=== PATIENT | male | born 1995 | race Caucasian/White ===

== ENCOUNTER 2021-07-15 12:50 | Outpatient (REF) | payer OTHER, SELFPAY ==
[2021-07-15 13:36] LABS: Hemoglobin 15.5 g/dl (14.0-18.0); Mean Corpuscular HGB Conc 34.4 g/dl (31.0-36.0); Mean Corpuscular Hemoglobin 30.6 pg (27.0-33.0); Mean Corpuscular Volume 88.9 fL (80.0-98.0); Platelet Count 267 X10*3/uL (160-400); Red Blood Count 5.06 X10*6/uL (4.60-5.80); Red Cell Distribution Width 12.5 % (11.0-16.0); White Blood Count 7.9 X10*3/uL (4.8-10.8)
[2021-07-15 13:56] LABS: Alanine Aminotransferase 42 U/L (0-40); Albumin Level 4.6 g/dL (3.5-5.0); Alkaline Phosphatase 83 U/L (39-117); Anion Gap 12 (12-20); Aspartate Amino Transferase 25 U/L (5-37); Bilirubin Total 0.6 mg/dL (0.0-1.0); Blood Urea Nitrogen 10 mg/dL (9-16); Calcium 10.1 mg/dL (8.4-10.2); Carbon Dioxide 28 mmol/L (22-29); Chloride 104 mmol/L (96-108); Cholesterol 148 mg/dL; Estimated Glomerular Filt Rate > 60; Glucose Fasting 84 mg/dL (60-99); HDL Cholesterol 57 mg/dL; LDL Cholesterol Calculated 79 mg/dl; Potassium 4.5 mmol/L (3.3-5.1); Sodium 139 mmol/L (135-145); Total Protein 7.2 g/dL (6.5-8.0); Triglycerides 61 mg/dL
[2021-07-15 14:16] LABS: TSH reflex Free T4 1.14 uIU/mL (0.32-4.0)
== END 2021-07-15 12:51 | disposition home or self-care (01) ==
LOC: HO.WFDLDS 12:50
PROVIDERS: Visit Provider Hospitalist
DX: Z00.00 Encounter for general adult medical examination without abnormal findings (principal)
CPT/HCPCS: 36415; 80053; 80061; 84443; 85027

== ENCOUNTER 2021-12-29 08:47 | Outpatient (REF) | payer OTHER, SELFPAY ==
[2021-12-29 09:24] LABS: COVID-19 Test Negative (Negative); IDNOW Serial# 16C4AD1C
== END 2021-12-29 08:48 | disposition home or self-care (01) ==
LOC: HO.LAB 08:47
PROVIDERS: Visit Provider Internal Medicine
DX: Z20.822 Contact with and (suspected) exposure to COVID-19 (principal)
CPT/HCPCS: 87635; C9803

== ENCOUNTER 2022-01-30 10:44 | Outpatient (REF) | payer OTHER, SELFPAY ==
[2022-01-30 14:27] LABS: Appearance Urine Clear; Color Urine Yellow; Glucose Urine UA Negative (Negative); Leukocyte Esterase Urine Negative (Negative); Nitrite Urine Negative (Negative); PH 6.5 (5.0-9.0); Specific Gravity - Urine <= 1.005 (1.005-1.025); Urine Blood Negative (Negative); Urine Ketones Negative (Negative); Urine Protein Negative (Neg-Trace)
[2022-01-30 16:33] LABS: CT PCR NOT DETECTED (Not Detect.); NG PCR NOT DETECTED (Not Detect.)
[2022-02-02 08:20] LABS: HBS Num1 71.81 mIU/mL (0-7.99); HBc Num1 0.06 S/CO (0.00-0.79); HBsAGNum1 0.19 S/CO (0.00-0.99); HIV AB/AG Nonreactive (Nonreactive); HIV Num 1 0.06 S/CO (0.00-0.99); Hepatitis B Core Antibody Nonreactive (Nonreactive); Hepatitis B Surface Antigen Negative (Negative); ~Hepatitis B Surface Antibody REACTIVE (Nonreactive); ~Hepatitis C Antibody Nonreactive (Nonreactive)
== END 2022-01-30 10:45 | disposition home or self-care (01) ==
LOC: HO.WFDLDS 10:44
PROVIDERS: Visit Provider Hospitalist
DX: Z11.3 Encounter for screening for infections with a predominantly sexual mode of transmission (principal); Z11.4 Encounter for screening for human immunodeficiency virus [HIV]
CPT/HCPCS: 36415; 81003; 86704; 86706; 86803; 87340; 87389; 87491; 87591

== ENCOUNTER → 2022-02-05 08:48 | Outpatient (BNVA) | payer OTHER, SELFPAY | PROVIDERS: PCP Hospitalist; Visit Provider Nurse Practitioner Family | DX: G47.19 Other hypersomnia (principal); R06.83 Snoring | CPT/HCPCS: 99202 ==

== ENCOUNTER → 2022-02-13 19:30 | Outpatient (REF) | payer OTHER, SELFPAY | LOC: HO.SL 19:30 | PROVIDERS: Visit Provider Hospitalist | DX: G47.33 Obstructive sleep apnea (adult) (pediatric) (principal) | CPT/HCPCS: 95810 ==

== ENCOUNTER → 2022-04-02 08:55 | Outpatient (BNVA) | payer OTHER, SELFPAY | PROVIDERS: PCP Hospitalist; Visit Provider Nurse Practitioner Family | DX: G47.19 Other hypersomnia (principal); G47.61 Periodic limb movement disorder | CPT/HCPCS: 99212 ==

== ENCOUNTER → 2022-07-03 11:07 | Outpatient (BNVA) | payer OTHER, SELFPAY | PROVIDERS: PCP Hospitalist; Visit Provider Nurse Practitioner Family | DX: G47.19 Other hypersomnia (principal); G47.61 Periodic limb movement disorder; Z79.899 Other long term (current) drug therapy | CPT/HCPCS: 99212 ==

== ENCOUNTER 2023-02-19 10:01 | Outpatient (AMB) | payer OTHER, SELFPAY ==
--- NOTE | 2023-02-19 10:05 | A.OFFPC_ITS ---
Vital Signs 02/19/23 10:07 Height 5 ft 10 in Weight 220 lb 2 oz BMI 31.6 BP 112/66 Blood Pressure Location Lt brachial Position Sitting Respiration 13 Pulse 59 Pulse Source Pulse Oximeter Temp 98.7 F Temp Source Oral Pulse Oximetry (%) 98 Oxygen Delivery Method Room Air Intake Visit Reasons: 6M allergies/asthma/Gabapentin, Trans of care Intake Note: Patient is here for a 6 months follow up of asthma, allergies and gabapentin as well as a transfer of care from to [place]. Patient reports he has seasonal allergies with mild symptoms of stuffy nose, itching watering eyes, nothing out of the ordinary. Patient reports he has a sleep study done for severe snoring and the results were 40 interruptions in which prescribed gabapentin for night time to help patient sleep through the night. Patient reports the gabapentin helps. Patient had sleep study done at [facility] [place]. Cable Splicer Required: No Accompanied by: Self / Same As Patient Allergies Seasonal Allergies Allergy (Mild, Verified 02/19/23 10:23) Itchy Eyes Medication List - Last Reconciled 02/19/23 by Jovan Martinez CNP albuterol sulfate 90 mcg/actuation 2 puffs inhalation Q6H PRN blood pressure test kit-large As directed cetirizine (Zyrtec) 10 mg PO DAILY PRN fluticasone propionate 50 mcg/actuation (Allergy Relief (fluticasone)) 2 sprays intranasal DAILY 1 month gabapentin 1-3 caps orally bedtime; modafinil 100 mg PO DAILY multivitamin 1 tab PO DAILY Tobacco use date assessed: 02/19/23 Dental Screening Dental Screen Date: 02/19/23 Did you have a dental visit in the last 12 months?: Yes Did you have a dental problem in the last 6 months where you did not have access to dental care?: No Was dental information given to patient?: Patient has dentist HPI HPI Comments History of Present Illness Details 27-year-old male presents for transfer o care. His former PCP was who is no longer with the practice. He was last evaluated on 07/16/2022. He had a normal physical exam. He has not had routine blood work done in over a year. He has history of snoring, excessive daytime sleepiness, and seasonal allergies. He is on albuterol inhaler, fluticasone inhaler, cetirizine, gabapentin, modafinil, and multivitamins. He admits to taking his medications as prescribed. He reports significant improvement with Gabapentin for night night s leep interruptions due to snoring. He also reports control symptoms of excessive daytime on modafinil. He had sleep study done at [facility] sleep medicine in 2021: snoring, no sleep apnea. He offers no complaints and denies acute symptoms at this time. [facility] Surgical History History of hand surgery Family History Mother No problems noted. Father No problems noted. Social History Household Members: Spouse Household Members Other:: Housing: House Alcohol intake: current Patient Tobacco Use Status: Current everyday Tobacco user Tobacco use type: Smokeless Tobacco e-Cigarette/Vaping Use: Never Used Second Hand Smoke Exposure: No service: Yes Current occupational status: employed Current occupation: Patient works at the [employer] in [place] Current occupational exposures/hazards: Yes Cognitive needs: No Hearing needs: Yes (Patient reports ringing in ears due to job ) Vision needs: Yes (Wears glasses) Questionnaire PHQ-9 Over the last 2 weeks, how often have you been bothered by any of the following problems? 1. Little interest or pleasure in doing things: not at all 2. Feeling down, depressed, or hopeless: not at all 3. Trouble falling or staying asleep, or sleeping too much: several days 4. Feeling tired or having little energy: several days 5. Poor appetite or overeating: not at all 6. Feeling bad about yourself - or that you are a failure or have let yourself or your family down: not at all 7. Trouble concentrating on things, such as reading the newspaper or watching television: several days 8. Moving or speaking so slowly that other people could have noticed. Or the opposite - being so fidgety or restless that you have been moving around a lot more than usual: not at all 9. Thoughts that you would be better off or of hurting yourself in some way: not at all Total score: 3 Depression Screening Interpretation: Negative Depression Screening Done: Yes 11606 - PHQ-9 Billing: Yes Source: Developed by Drs. Emile Light, Romy Lovelace, Balbir Babin and colleagues, with an educational jose from [email or web address]. Thrive Questionnaire Date Thrive assessed: 02/19/23 I am a: Patient What is your living situation today?: I have a steady place to live Within the past 12 months, did the food you bought not last and you didn't have the money to get more?: Never true Within the past 12 months, did you worry whether your food would run out before you got money to buy more?: Never true Do you have trouble paying for medicines?: No Do you have trouble getting transportation to medical appointments?: No Do you have trouble paying your heating and electricity bill?: No Do you have trouble taking care of your child, family member or friend?: No Do you have trouble with day-to-day activities such as bathing, preparing meals, shopping, managing finances, etc.?: No Are you currently unemployed and looking for a job?: No Are you interested in more education?: No Please select the resources that you would like help with: None Currently or been in a relationship where the following occur: no concerns reported BERNA-7 AMB Questionnaire BERNA-7 Date BERNA - 7 assessed: 02/19/23 Feeling nervous, anxious, or on edge: 1 = Several days Not being able to stop or control worryin = Several days Worrying too much about different things: 1 = Several days Trouble relaxin = Several days Being so restless that it is hard to sit still: 1 = Several days Becoming easily annoyed or irritable: 0 = Not at all Feeling afraid as if something awful might happen: 0 = Not at all Total BERNA-7 score (0-4 normal; 5-9 mild; 10-14 moderate; 15-21 severe): 5 Source: Developed by Drs. Emile Light, Romy Lovelace, Balbir Babin and colleagues, with an educational jose from [email or web address]. BERNA-7 Assessment Billing BERNA-7 Assessment Tool: BERNA-7 Assessment 03647 ACT Questionnaire In the past 4 weeks, how much of the time did your asthma keep you from getting as much done at work, school or at home?: None of the time During the past 4 weeks, how often have you had shortness of breath?: 1-2 times a week During the past 4 weeks, how often did your asthma symptoms wake you up at night or earlier than usual in the morning?: Not at all During the past 4 weeks, how often have you had to use your rescue inhaler or nebulizer medication?: Once a week or less How would you rate your asthma control during the past 4 weeks?: Completely controlled ACT Interpretation: Negative Score: 23 Review of Systems Const Details: Const Denies chills, Denies fatigue, Denies fever(s), Denies headache(s) and Denies weakness ENT Denies dizziness and Denies headache(s) Card Denies chest pain, Denies lightheadedness, Denies dyspnea and Denies other (Palpitations) Resp Denies cough, Denies dyspnea, Denies wheezing and Denies other ( shortness of breath) GI Denies abdominal pain, Denies melena, Denies hematochezia, Denies change in bowel habits, Denies dyspepsia and Denies nausea Denies hematuria and Denies dysuria Musc Denies abnormal gait, Denies myalgias, Denies arthralgias, Denies numbness and Denies tingling Skin/Breast Denies rash, Denies unusual bruising and Denies wounds Neuro Denies abnormal gait, Denies dizziness, Denies headache(s), Denies memory loss, Denies numbness, Denies Sensory deficit (Neuro), Denies tingling and Denies weakness Psych Denies anxiety, Denies depression, Denies memory loss Endo Denies cold intolerance, Denies fatigue, Denies heat intolerance, Denies polydipsia and Denies polyuria Aller/Immun Denies wheezing Physical exam (Primary Care) Vital Signs: Last Vital Signs Temp 98.7 F 02/19/23 10:07 Pulse 59 02/19/23 10:07 Resp 13 02/19/23 10:07 BP 112/66 02/19/23 10:07 Pulse Ox 98 02/19/23 10:07 Oxygen Delivery Method Room Air 02/19/23 10:07 BMI result Body Mass Index 31.6 Tobacco/Smoking Status: Tobacco use Status Tobacco use date assessed 02/19/23 02/19/23 10:18 Patient Tobacco Use Status Current everyday Tobacco 02/19/23 10:06 Tobacco use type Smokeless Tobacco 02/19/23 10:06 e-Cigarette/Vaping Use Never Used 02/19/23 10:06 Depression Screening Interpretation: Negative Thrive Assessment: Date of Thrive Assessment Date Thrive assessed 07/16/22 02/19/23 10:06 Currently or been in a relationship where the following occur: no concerns reported Const Other: General: no acute distress and well developed Nutritional Appearance: well nourished Orientation/consciousness: patient oriented x3 [facility] Head: Yes normocephalic and Yes atraumatic Eyes General: appearance normal, both eyes and all related structures Pupils: Equal, round and reactive pupils present EOM: EOMs intact bilaterally Resp Effort & Inspection: normal respiratory effort Auscultation: clear to auscultation bilaterally Cardio Rate: regular rate Rhythm: regular rhythm Heart sounds: S1 normal heart sound present, S2 normal heart sound present, no gallops, no murmurs and no rubs GI Palpation (GI): No Abdominal aortic bruit present, Soft to palpation, nontender, No hepatosplenomegaly present and No Rebound tenderness present Auscultation: normal bowel sounds General: Yes no CVA tenderness Back/Spine/Pelvis Back: no CVA tenderness Cervical Spine: cervical ROM normal and No Cervical spine tenderness Thoracic/Lumbar Spine: thoraco-lumbar ROM normal, No pain with thoraco-lumbar ROM, No thoracic spinal tenderness and No lumbar spinal tenderness Extrem General: Yes normal to inspection, No edema and No calf tenderness Skin General: warm and dry. Normal skin color. Normal skin turgor Lesions: no lesions Rashes: no rashes Trauma: no lacerations or abrasions Wounds: no wounds Nails: normal Neuro General: patient oriented x3, gait normal and no focal neuro deficit Cranial nerves: Yes Equal, round and reactive pupils present Cognition (Neuro): normal cognition Gait exam (Neuro): Normal gait present Sensory Exam: No Sensory deficit (Neuro) Psych Appearance: grossly normal Affect: normal affect Attitude: cooperative Thought process: Normal thought process present Assessment and Plan Assessment & Plan (1) Snoring: Code(s): R06.83 - Snoring Plan: Controlled Continue to take gabapentin as prescribed Follow-up in 5 months for complete physical exam. Advised to fast for 10-12 hours and get routine blood work done before his next visit. Return with worsening or new symptoms Verbalized understanding and agreed with treatment plan. (2) Excessive daytime sleepiness: Comment: ESS score 18 PSG sleep study revealed no evidence of sleep apnea. Code(s): G47.19 - Other hypersomnia Plan: Controlled Continue to take modafinil as prescribed Follow-up with sleep medicine as needed Return with worsening or new symptoms Verbalized understanding and agreed with treatment plan. Orders: Orders Comprehensive [place]. Panel Fast Today Z00.00 - Encounter for general adult medical examination without abnormal findings Complete Blood Count Auto Diff Today Z00.00 - Encounter for general adult medical examination without abnormal findings Lipid Panel Today Z00.00 - Encounter for general adult medical examination without abnormal findings TSH reflex Free T4 Today Z00.00 - Encounter for general adult medical examination without abnormal findings UA CC w/rflx Micro + Cult Today Z00.00 - Encounter for general adult medical examination without abnormal findings Coding Level of Care Code Est Pt Level 3 (95340) Diagnoses Snoring R06.83 Excessive daytime sleepiness G47.19 Additional Codes BERNA-7 Assessment Billing - BERNA-7 Assessment Tool: BERNA-7 Assessment 79818 ([id number])
[2023-02-19 10:07] VITALS: BP 112/66; PULSE 59; RESP 13; TEMP 37.1; O2SAT 98; BMI 31.6
== END 2023-02-19 11:14 | disposition home or self-care (01) ==
PROVIDERS: PCP Nurse Practitioner Family; Visit Provider Nurse Practitioner Family
DX: R06.83 Snoring (principal); G47.19 Other hypersomnia
CPT/HCPCS: 99213

== ENCOUNTER 2023-02-19 11:00 | Outpatient (REF) | payer OTHER, SELFPAY ==
[2023-02-19 14:33] LABS: MANUAL DIFF FLAG NO
[2023-02-19 14:45] LABS: Appearance Urine Clear; Basophils Percent Auto 0.6 % (0-2); Color Urine Yellow; Eosinophils Absolute Auto 0.3 X10*3/uL (0.0-0.4); Eosinophils Percent Auto 4.5 % (0-4); Glucose Urine UA Negative (Negative); Hematocrit 45.7 % (42.0-52.0); Imm Gran Abs Auto 0.01 X10*3/uL (0.00-0.03); Imm Gran Pct Auto 0.2 % (0.0-0.4); Leukocyte Esterase Urine Negative (Negative); Lymphocytes Absolute Auto 1.4 X10*3/uL (1.2-4.9); Mean Corpuscular Hemoglobin 30.8 pg (27.0-33.0); Mean Corpuscular Volume 87.9 fL (80.0-98.0); Mean Platelet Volume 10.5 fL (9.4-12.4); Monocytes Absolute Auto 0.4 X10*3/uL (0.1-1.2); Monocytes Percent Auto 6.2 % (2-11); Neutrophils Absolute Auto 4.1 x10*3/uL (2.0-8.3); Neutrophils Percent Auto 65.5 % (45-73); Nitrite Urine Negative (Negative); Platelet Count 303 X10*3/uL (160-400); Red Cell Distribution Width 12.4 % (11.0-16.0); Specific Gravity - Urine <= 1.005 (1.005-1.025); Urine Blood Negative (Negative); Urine Ketones Negative (Negative); Urine Protein Negative (Neg-Trace); White Blood Count 6.3 X10*3/uL (4.8-10.8)
[2023-02-19 14:54] LABS: Alanine Aminotransferase 27 U/L (0-40); Albumin Level 4.7 g/dL (3.5-5.0); Alkaline Phosphatase 99 U/L (39-117); Anion Gap 14 (12-20); Aspartate Amino Transferase 24 U/L (5-37); Bilirubin Total 0.8 mg/dL (0.0-1.0); Blood Urea Nitrogen 10 mg/dL (9-16); Calcium 10.4 mg/dL (8.4-10.2); Carbon Dioxide 26 mmol/L (22-29); Chloride 104 mmol/L (96-108); Cholesterol 135 mg/dL (<200); Estimated Glomerular Filt Rate > 60; Glucose Fasting 89 mg/dL (60-99); HDL Cholesterol 45 mg/dL (>40); LDL Cholesterol Calculated 75 mg/dL (<100); Potassium 4.5 mmol/L (3.3-5.1); Sodium 139 mmol/L (135-145); Total Protein 7.3 g/dL (6.5-8.0); Triglycerides 75 mg/dL (<150)
[2023-02-19 15:11] LABS: TSH reflex Free T4 0.81 uIU/mL (0.32-4.0)
[2023-02-19 15:17] LABS: Vitamin B12 1193 pg/mL (200-900)
[2023-02-24 13:44] LABS: Vitamin D 25-OH, D2 <4 ng/mL; Vitamin D 25-OH, D3 31 ng/mL; Vitamin D 25-OH, Total 31 ng/mL (30-100)
== END 2023-02-19 11:01 | disposition home or self-care (01) ==
LOC: HO.WFDLDS 11:00
PROVIDERS: Hospitalist; Visit Provider Nurse Practitioner Family
DX: Z00.00 Encounter for general adult medical examination without abnormal findings (principal); Z13.21 Encounter for screening for nutritional disorder; R06.83 Snoring
CPT/HCPCS: 36415; 80053; 80061; 81003; 82306; 82607; 84443; 85025

== ENCOUNTER 2023-05-25 17:18 | Outpatient (AMB) | payer OTHER, SELFPAY ==
[2023-05-25 17:20] VITALS: BP 118/74; PULSE 65; RESP 13; TEMP 36.4; O2SAT 100; BMI 32.3
--- NOTE | 2023-05-25 17:20 | A.OFFPC_ITS ---
Vital Signs 05/25/23 17:20 Height 5 ft 10 in Weight 225 lb BMI 32.3 BP 118/74 Blood Pressure Location Lt brachial Position Sitting Respiration 13 Pulse 65 Pulse Source Pulse Oximeter Temp 97.6 F Temp Source Temporal Artery Scan Pulse Oximetry (%) 100 Oxygen Delivery Method Room Air Intake Visit Reasons: Get a referral for a genetic/fertility test. 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 Required: No Accompanied by: Self / Same As Patient Allergies Seasonal Allergies Allergy (Mild, Verified 05/25/23 17:28) Itchy Eyes Tobacco use date assessed: 05/25/23 Dental Screening Dental Screen Date: 05/25/23 Did you have a dental visit in the last 12 months?: Yes Did you have a dental problem in the last 6 months where you did not have access to dental care?: No Was dental information given to patient?: Patient has dentist HPI HPI Comments History of Present Illness Details 28-year-old male presents with request f or genetics and fertility referral He notes that he and his have been unsuccessful in trying to have a baby for the past 1 year He offers no complaints and denies acute symptoms at this time [facility] Medical History (Updated 05/31/23 @ 14:44 by Jovan Martinez CNP) No pertinent past medical history Surgical History History of hand surgery Family History Mother No problems noted. Father No problems noted. Social History Household Members: Spouse Household Members Other:: Housing: House Alcohol intake: current Patient Tobacco Use Status: Current everyday Tobacco user Tobacco use type: Smokeless Tobacco e-Cigarette/Vaping Use: Never Used Second Hand Smoke Exposure: No service: Yes Current occupational status: employed Current occupation: Patient works at the [employer] in [place] Current occupational exposures/hazards: Yes Cognitive needs: No Hearing needs: No (Patient reports ringing in ears due to job ) Vision needs: No (Wears glasses) Questionnaire Thrive Questionnaire Date Thrive assessed: 02/19/23 BERNA-7 AMB Questionnaire BERNA-7 Date BERNA - 7 assessed: 02/19/23 Source: Developed by Drs. Emile Light, Romy Lovelace, Balbir Babin and colleagues, with an educational jose from [employer]. Review of Systems Const Details: Const Denies chills, Denies fatigue, Denies fever(s), Denies headache(s) and Denies weakness ENT Denies dizziness and Denies headache(s) Card Denies chest pain, Denies lightheadedness, Denies dyspnea and Denies other (Palpitations) Resp Denies cough, Denies dyspnea, Denies wheezing and Denies other ( shortness of breath) GI Denies abdominal pain, Denies melena, Denies hematochezia, Denies change in bowel habits, Denies dyspepsia and Denies nausea Denies hematuria and Denies dysuria Musc Denies abnormal gait, Denies myalgias, Denies arthralgias, Denies numbness and Denies tingling Skin/Breast Denies rash, Denies unusual bruising and Denies wounds Neuro Denies abnormal gait, Denies dizziness, Denies headache(s), Denies memory loss, Denies numbness, Denies Sensory deficit (Neuro), Denies tingling and Denies weakness Psych Denies anxiety, Denies depression, Denies memory loss Endo Denies cold intolerance, Denies fatigue, Denies heat intolerance, Denies polydipsia and Denies polyuria Aller/Immun Denies wheezing Physical exam (Primary Care) Vital Signs: Last Vital Signs Temp 97.6 F 05/25/23 17:20 Pulse 65 05/25/23 17:20 Resp 13 05/25/23 17:20 BP 118/74 05/25/23 17:20 Pulse Ox 100 05/25/23 17:20 Oxygen Delivery Method Room Air 05/25/23 17:20 BMI result Body Mass Index 32.3 Tobacco/Smoking Status: Tobacco use Status Tobacco use date assessed 05/25/23 05/25/23 17:27 Patient Tobacco Use Status Current everyday Tobacco 05/25/23 17:25 Tobacco use type Smokeless Tobacco 05/25/23 17:25 e-Cigarette/Vaping Use Never Used 05/25/23 17:25 Thrive Assessment: Date of Thrive Assessment Date Thrive assessed 02/19/23 05/25/23 17:25 Const Other: General: no acute distress and well developed Nutritional Appearance: well nourished Orientation/consciousness: patient oriented x3 [facility] Head: Yes normocephalic and Yes atraumatic Eyes General: appearance normal, both eyes and all related structures Pupils: Equal, round and reactive pupils present EOM: EOMs intact bilaterally Resp Effort & Inspection: normal respiratory effort Auscultation: clear to auscultation bilaterally Cardio Rate: regular rate Rhythm: regular rhythm Heart sounds: S1 normal heart sound present, S2 normal heart sound present, no gallops, no murmurs and no rubs GI Palpation (GI): No Abdominal aortic bruit present, Soft to palpation, nontender, No hepatosplenomegaly present and No Rebound tenderness present Auscultation: normal bowel sounds General: Yes no CVA tenderness Back/Spine/Pelvis Back: no CVA tenderness Cervical Spine: cervical ROM normal and No Cervical spine tenderness Thoracic/Lumbar Spine: thoraco-lumbar ROM normal, No pain with thoraco-lumbar ROM, No thoracic spinal tenderness and No lumbar spinal tenderness Extrem General: Yes normal to inspection, No edema and No calf tenderness Skin General: warm and dry. Normal skin color. Normal skin turgor Neuro General: patient oriented x3, gait normal and no focal neuro deficit Cranial nerves: Yes Equal, round and reactive pupils present Cognition (Neuro): normal cognition Gait exam (Neuro): Normal gait present Sensory Exam: No Sensory deficit (Neuro) Psych Appearance: grossly normal Affect: normal affect Attitude: cooperative Thought process: Normal thought process present Assessment and Plan Assessment & Plan (1) Infertility counseling: Code(s): Z31.69 - Encounter for other general counseling and advice on procreation Plan: Referred to [facility] Reproductive endocrinology Follow up with symptoms or concerns Verbalized understanding and agreed with the martinez Orders: Referrals Reproductive Endocrinology Z31.69 - Encounter for other general counseling and advice on procreation Coding Level of Care Code Est Pt Level 3 (92214) Diagnoses Infertility counseling Z31.69
== END 2023-05-25 17:37 | disposition home or self-care (01) ==
LOC: HO.HMGFM 17:18
PROVIDERS: PCP Nurse Practitioner Family; Visit Provider Nurse Practitioner Family
DX: Z31.69 Encounter for other general counseling and advice on procreation (principal)
CPT/HCPCS: 99213

== ENCOUNTER 2023-08-20 13:10 | Outpatient (AMB) | payer OTHER, SELFPAY ==
[2023-08-20 13:19] VITALS: BP 150/90; PULSE 67; RESP 13; TEMP 36.6; O2SAT 99; BMI 31.7
--- NOTE | 2023-08-20 13:19 | MHC.PC.OV ---
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 Accompanied by: Self / Same As Patient Allergies Seasonal Allergies Allergy (Mild, Verified 08/20/23 13:27) Itchy Eyes Medication List - Last Reconciled 08/20/23 by Jovan Martinez CNP albuterol sulfate 90 mcg/actuation 2 puffs inhalation Q6H PRN blood pressure test kit-large As directed cetirizine (Zyrtec) 10 mg PO DAILY PRN fluticasone propionate 50 mcg/actuation (Allergy Relief (fluticasone)) 2 sprays intranasal DAILY 1 month gabapentin 1-3 caps orally bedtime; modafinil 100 mg PO DAILY multivitamin 1 tab PO DAILY Tobacco use date assessed: 08/20/23 Dental Screening Dental Screen Date: 05/25/23 Did you have a dental visit in the last 12 months?: Yes Did you have a dental problem in the last 6 months where you did not have access to dental care?: No Was dental information given to patient?: Patient has dentist HPI HPI Comments History of Present Illness Details 28-year-old male presents for an extended physical exam. He has history of snoring, excessive daytime sleepiness, and seasonal allergies. He also reports history of elevated blood pressure readings. His former PCP ordered blood pressure monitor in the past. He admits to taking his medications as prescribed without adverse reactions. He notes that he consumed significant amount of salt in the past one week. He offers no complaints and denies acute symptoms at this time. He states that he has been making healthy lifestyle changes, including diet and regular physical exercise He notes that he has been using zyn nicotine oral pouches, currently 4-5 daily for, for the past 5 years. He drinks alcohol occasionally. He denies recreational drug use. He notes that he is sexually active, in a monogamous relationship, and has no concerns for STD. He states that he is up-to-date on the flu vaccine [facility] Medical History (Updated 08/20/23 @ 13:48 by Jovan Martinez CNP) No pertinent past medical history Surgical History History of hand surgery Family History Mother No problems noted. Father No problems noted. Social History Household Members: Spouse Household Members Other:: Housing: House Alcohol intake: current Patient Tobacco Use Status: Current everyday Tobacco user Tobacco use type: Smokeless Tobacco e-Cigarette/Vaping Use: Never Used Second Hand Smoke Exposure: No service: Yes Current occupational status: employed Current occupation: Patient works at [employer] in [place] Current occupational exposures/hazards: Yes Cognitive needs: No Hearing needs: No (Patient reports ringing in ears due to job ) Vision needs: No (Wears glasses) Questionnaire PHQ-9 Over the last 2 weeks, how often have you been bothered by any of the following problems? 1. Little interest or pleasure in doing things: not at all 2. Feeling down, depressed, or hopeless: not at all 3. Trouble falling or staying asleep, or sleeping too much: not at all 4. Feeling tired or having little energy: not at all 5. Poor appetite or overeating: not at all 6. Feeling bad about yourself - or that you are a failure or have let yourself or your family down: not at all 7. Trouble concentrating on things, such as reading the newspaper or watching television: not at all 8. Moving or speaking so slowly that other people could have noticed. Or the opposite - being so fidgety or restless that you have been moving around a lot more than usual: not at all 9. Thoughts that you would be better off or of hurting yourself in some way: not at all Total score: 0 Depression Screening Interpretation: Negative Depression Screening Done: Yes 04264 - PHQ-9 Billing: Yes Source: Developed by Drs. Emile Light, Romy Lovelace, Balbir Babin and colleagues, with an educational jose from [employer]. Thrive Questionnaire Date Thrive assessed: 08/20/23 I am a: Patient What is your living situation today?: I have a steady place to live Within the past 12 months, did the food you bought not last and you didn't have the money to get more?: Never true Within the past 12 months, did you worry whether your food would run out before you got money to buy more?: Never true Do you have trouble paying for medicines?: No Do you have trouble getting transportation to medical appointments?: No Do you have trouble paying your heating and electricity bill?: No Do you have trouble taking care of your child, family member or friend?: No Do you have trouble with day-to-day activities such as bathing, preparing meals, shopping, managing finances, etc.?: No Are you currently unemployed and looking for a job?: No Are you interested in more education?: No Please select the resources that you would like help with: None Currently or been in a relationship where the following occur: no concerns reported THRIVE Score: 0 AUDIT C Alcohol Use Questionnaire (AUDIT-C) 1. How often do you have a drink containing alcohol?: 2-4 times a month 2. How many drinks containing alcohol do you have on a typical day when you are drinking?: 3 or 4 3. How often do you have six or more drinks on one occasion?: Never Total Score: 3 BERNA-7 AMB Questionnaire BERNA-7 Date BERNA - 7 assessed: 08/20/23 Feeling nervous, anxious, or on edge: 0 = Not at all Not being able to stop or control worryin = Not at all Worrying too much about different things: 0 = Not at all Trouble relaxin = Not at all Being so restless that it is hard to sit still: 0 = Not at all Becoming easily annoyed or irritable: 0 = Not at all Feeling afraid as if something awful might happen: 0 = Not at all Total BERNA-7 score (0-4 normal; 5-9 mild; 10-14 moderate; 15-21 severe): 0 Source: Developed by Drs. Emile Light, Romy Lovelace, Balbir Babin and colleagues, with an educational jose from [employer]. BERNA-7 Assessment Billing BERNA-7 Assessment Tool: BERNA-7 Assessment 44029 Review of Systems Const Details: Denies chills, Denies fatigue, Denies fever(s), Denies headache(s) and Denies weakness HEENT Denies change in vision, Denies dizziness, Denies headache(s), Denies hearing loss, Denies nasal congestion, Denies sinus pain, Denies sinus pressure and Denies sore throat Card Denies chest pain, Denies lightheadedness, Denies dyspnea and Denies other (palpitations) Resp Denies cough, Denies dyspnea and Denies wheezing GI Denies abdominal pain, Denies melena, Denies hematochezia, Denies change in bowel habits, Denies dyspepsia and Denies nausea Denies hematuria and Denies dysuria Musc Denies abnormal gait, Denies myalgias, Denies arthralgias, Denies numbness and Denies tingling Skin/Breast Denies rash, Denies unusual bruising and Denies wounds Neuro Denies abnormal gait, Denies dizziness, Denies headache(s), Denies memory loss, Denies numbness, Denies Sensory deficit (Neuro), Denies tingling and Denies weakness Psych Denies anxiety, Denies depression and Denies memory loss Endo Denies cold intolerance, Denies fatigue, Denies heat intolerance, Denies polydipsia and Denies polyuria Teo/Lymph Denies easy bleeding and Denies easy bruising Aller/Immun Denies wheezing Physical exam (Primary Care) Tobacco/Smoking Status: Tobacco use Status Tobacco use date assessed 05/25/23 05/25/23 17:27 Patient Tobacco Use Status Current everyday Tobacco 05/25/23 17:25 Tobacco use type Smokeless Tobacco 05/25/23 17:25 e-Cigarette/Vaping Use Never Used 05/25/23 17:25 Depression Screening Interpretation: Negative Thrive Assessment: Date of Thrive Assessment Date Thrive assessed 02/19/23 05/25/23 17:25 Currently or been in a relationship where the following occur: no concerns reported Const Other: General: no acute distress, well developed, alert and awake Nutritional Appearance: well nourished Orientation/consciousness: patient oriented x3 HENMT Head: Yes normocephalic and Yes atraumatic Ears: hearing grossly normal bilaterally and TM's normal bilaterally General nose exam: Normal external nose present and Normal nares present Mouth: Normal oral and palatal mucosa present and moist mucous membranes Teeth and gingiva: dentition normal Throat: Yes oropharynx normal Eyes Pupils: Equal, round and reactive pupils present and Pupil accommodation reflex normal EOM: EOMs intact bilaterally Neck Neck: Yes normal visual inspection, Yes no lymphadenopathy and Yes trachea midline Thyroid: Thyroid normal Carotids: no bruits Lymphatic: no lymphadenopathy noted Chest Chest palpation & inspection: normal inspection of the chest Resp Effort & Inspection: normal respiratory effort Auscultation: clear to auscultation bilaterally Cardio Rate: regular rate Rhythm: regular rhythm Heart sounds: S1 normal heart sound present, S2 normal heart sound present, no gallops, no murmurs and no rubs Bruits: no abdominal aortic bruits and no carotid bruits GI Palpation (GI): No Abdominal aortic bruit present, Soft to palpation, nontender, No hepatosplenomegaly present and No Rebound tenderness present Auscultation: normal bowel sounds General: Yes no CVA tenderness Back/Spine/Pelvis Back: no CVA tenderness Cervical Spine: cervical ROM normal and No Cervical spine tenderness Thoracic/Lumbar Spine: thoraco-lumbar ROM normal, No pain with thoraco-lumbar ROM, No thoracic spinal tenderness and No lumbar spinal tenderness Skin General: warm and dry. Normal skin color. Normal skin turgor Lesions: no lesions Rashes: no rashes Trauma: no lacerations or abrasions Wounds: no wounds Nails: normal Neuro General: patient oriented x3, gait normal and CN's II-XI intact bilaterally Cranial nerves: Yes Equal, round and reactive pupils present Cognition (Neuro): normal cognition Gait exam (Neuro): Normal gait present Motor exam (neuro): 5/5 motor strength present throughout Sensory Exam: No Sensory deficit (Neuro) Deep tendon reflexes (DTR's): Right patellar reflex intensity grade: 2+ and Left patellar reflex intensity grade: 2+ Extrem General: Yes normal to inspection, No edema and No calf tenderness Psych Appearance: grossly normal Affect: normal affect Attitude: cooperative Thought process: Normal thought process present Assessment and Plan Assessment & Plan (1) Normal physical exam: Code(s): Z00.00 - Encounter for general adult medical examination without abnormal findings Plan: No significant physical restrictions or limitations noted Continue current treatment regimen Healthy diet and routine exercise encouraged Continue follow-up with sleep medicine as planned Follow-up in 1 month for elevated blood pressure or return sooner with symptoms or concerns Verbalized understanding and agreed with treatment plan (2) Elevated BP without diagnosis of hypertension: Code(s): R03.0 - Elevated blood-pressure reading, without diagnosis of hypertension Plan: Resting blood pressure is 136/90, slightly above goal of less than 140/90 He consumed significant amount of sodium in the past 1 week Routine exercise and low-sodium diet encouraged Advised to monitor his blood pressure 2 to 3 times a week, record readings, and bring to his next appointment Follow-up in 1 month Verbalized understanding and agreed with treatment plan (3) Nicotine use: Code(s): Z72.0 - Tobacco use Plan: He has been using zyn nicotine oral pouches, currently 4-5 daily for, for the past 5 years Instructed on the health risks and complications of cigarette smoking Smoking cessation encouraged Declines medication treatment for smoking cessation and notes that he will try to stop using nicotine without medication Advised to inform his PCP if he changes his mind on medication management for smoking cessation Verbalized understanding and agreed with treatment plan Coding Level of Care Code Est Pt Prev Care [id number]) Diagnoses Normal physical exam Z00.00 Elevated BP without diagnosis of hypertension R03.0 Nicotine use Z72.0 Additional Codes BERNA-7 Assessment Billing - BERNA-7 Assessment Tool: BERNA-7 Assessment [id number] ([id number])
[2023-08-20 13:31] VITALS: BP 136/90
== END 2023-08-20 13:46 | disposition home or self-care (01) ==
PROVIDERS: PCP Nurse Practitioner Family; Visit Provider Nurse Practitioner Family
DX: Z00.00 Encounter for general adult medical examination without abnormal findings (principal); R03.0 Elevated blood-pressure reading, without diagnosis of hypertension; Z72.0 Tobacco use
CPT/HCPCS: 99395

== ENCOUNTER 2024-05-12 09:38 | Outpatient (AMB) | payer OTHER, SELFPAY ==
--- OUTSIDE RECORDS SUMMARY | 2024-05-12 09:42 | XMS_ITS | Continuity of Care Document ---
Author Name [facility] Organization [facility] Care Team Providers Care Coordinator Of Online Programs Name Role Phone [facility] Unavailable Unavailable Problems Combined list of problems from Department of Defense and Veterans Affairs facilities. It does not include entries that were removed or entered in error. Problem Status Onset Date Problem Type Date of Resolution Comments Source visit for: administrative purpose Inactive 01/30/2013 Condition DoD visit for: services physical accession Active Condition DoD refractive error Active Condition DoD Medications Combined list of outpatient medications from Department of [employer] and Veterans Affairs facilities.Medications provided include 1) outpatient medications from the last 15 months, and 2) patient-reported medications. Medication Details Route Status Patient Instructions Prescription Expires Prescription Number Last Dispense Date Ordering Provider Order Date Order Qty Source CYCLOBENZAP RINE HCL (cyclobenza nael HCl), 10 MG, TABLET, ORAL, TEVA USA, 1000 ea. BOTTLE Active [id number] 2023 14 Pharmac y Data Transac tion Service Facilit y FLUTICASONE PROPIONATE (FLUTICASON E PROPIONATE) , 50MCG, SPRAY SUSP, NASAL, MINNIE LABS., 16 g AER W/ADAP Cancele d [id number] : 2023 0 Pharmac y Data Transac tion Service Facilit y FLUTICASONE PROPIONATE (FLUTICASON E PROPIONATE) , 50MCG, SPRAY SUSP, NASAL, MINNIE LABS., 16 g AER W/ADAP Active [id number] 2023 16 Pharmac y Data Transac tion Service Facilit y GABAPENTIN (gabapentin ), 100 MG, CAPSULE, ORAL, CIPLA USA, INC., 500 ea. BOTTLE Cancele d [id number] : 2023 0 Pharmac y Data Transac tion Service Facilit y GABAPENTIN (gabapentin ), 100 MG, CAPSULE, ORAL, CIPLA USA, INC., 500 ea. BOTTLE Active [id number] 2023 90 Pharmac y Data Transac tion Service Facilit y GABAPENTIN (gabapentin ), 100 MG, CAPSULE, ORAL, SCIEGEN PHARMAC, 500 ea. BOTTLE Active [id number] 2023 90 Pharmac y Data Transac tion Service Facilit y IBUPROFEN (ibuprofen) , 600 MG, TABLET, ORAL, TIME-CAP LABS, 500 ea. BOTTLE Active [id number] 2023 21 Pharmac y Data Transac tion Service Facilit y LIDOCAINE (LIDOCAINE) , 5%(700MG), ADH. PATCH, TOPICAL, QUALITEST, 30 ea. BOX Active [id number] 2023 30 Pharmac y Data Transac tion Service Facilit y MODAFINIL (MODAFINIL) , 100 MG, TABLET, ORAL, AUROBINDO PHARM, 30 ea. BOTTLE Cancele d [id number] : 2023 0 Pharmac y Data Transac tion Service Facilit y MODAFINIL (MODAFINIL) , 100 MG, TABLET, ORAL, AUROBINDO PHARM, 30 ea. BOTTLE Active [id number] 2023 30 Pharmac y Data Transac tion Service Facilit y MODAFINIL (MODAFINIL) , 100 MG, TABLET, ORAL, AUROBINDO PHARM, 30 ea. BOTTLE Active [id number] 2023 30 Pharmac y Data Transac tion Service Facilit y MODAFINIL (MODAFINIL) , 100 MG, TABLET, ORAL, AUROBINDO PHARM, 30 ea. BOTTLE Active [id number] 2023 30 Pharmac y Data Transac tion Service Facilit y Allergies, Adverse Reactions, Alerts Combined list of allergies from Department of Defense and Veterans Affairs facilities. It does not include entries that were removed or entered in error. Substance Category Reaction Severity Reaction type Status Date Reported Comments Source No Known Allergies Drug allergy (disorder) active 01/30/2013 [facility] [place] [address] Immunizations Combined list of available immunizations from the Department of Defense and Veterans Affairs facilities. Immunization Series Date Given Administered By Site Reaction Lot Number CVX Code Drug Manhole Stripper Status Comments Source influenza virus vaccine, inactivated 2023 KELLIE KATE Smith kota, left (delt oid) [id number] LeanWagon, A [employer] complet ed influenza virus vaccine, inactivat ed 03/08/24 Given 8203R-1 04 MDG COVID Vaccine Pfizer 2021 [id number] PFIZER complet ed COVID Vaccine Pfizer 06/17/21 Given Ambulat ory Pharmac y SARS-COV-2 (COVID-19) vaccine, mRNA, spike protein, LNP, preservative free, 30 mcg/0.3mL dose 3 2021 [id number] Pfizer, Inc (PFR) complet ed SARS-COV- 2 (COVID-19 ) vaccine, mRNA, spike protein, LNP, preservat sylvester free, 30 mcg/0.3mL dose DoD influenza, injectable, quadrivalent 2020 [id number] 158 GlaxMed ePadKlYuenimei ak complet ed influenza , injectabl e, quadrival ent 02/16/21 Given Ambulat ory Pharmac y influenza, injectable, quadrivalent, contains preservative 9 2020 [id number] 158 CrashmobSiesta Key (SKB) complet ed influenza , injectabl e, quadrival ent, contains preservat sylvester DoD COVID Vaccine Moderna 2020 [id number] complet ed COVID Vaccine Moderna 07/09/20 Given Ambulat ory Pharmac y SARS-COV-2 (COVID-19) vaccine, mRNA, spike protein, LNP, preservative free, 100 mcg or 50 mcg dose 2 2020 [id number] 207 Moderna Broadlink, Inc. (MOD) complet ed SARS-COV- 2 (COVID-19 ) vaccine, mRNA, spike protein, LNP, preservat sylvester free, 100 mcg or 50 mcg dose DoD COVID Vaccine Moderna 2020 [id number] complet ed COVID Vaccine Moderna 06/12/20 Given Ambulat ory Pharmac y SARS-COV-2 (COVID-19) vaccine, mRNA, spike protein, LNP, preservative free, 100 mcg or 50 mcg dose 1 2020 [id number] 207 Moderna US, Inc. (MOD) complet ed SARS-COV- 2 (COVID-19 ) vaccine, mRNA, spike protein, LNP, preservat sylvester free, 100 mcg or 50 mcg dose DoD influenza, injectable, quadrivalent- pf 2019 [id number] 150 Seqirus complet ed influenza , injectabl e, quadrival ent-pf 03/17/20 Given Ambulat ory Pharmac y Influenza, injectable, quadrivalent, preservative free 1 2019 [id number] 150 Seqirus (SEQ) complet ed Influenza , injectabl e, quadrival ent, preservat sylvester free DoD influenza, injectable, quadrivalent- pf 2019 [id number] 150 Seqirus complet ed influenza , injectabl e, quadrival ent-pf 07/07/19 Given Ambulat ory Pharmac y Influenza, injectable, quadrivalent, preservative free 1 2019 [id number] 150 Seqirus (SEQ) comple t ed Influenza , injectabl e, quadrival ent, preservat sylvester free DoD influenza, injectable, quadrivalent 2017 [id number] 158 Seqirus complet ed influenza , injectabl e, quadrival ent 02/23/18 Given Ambulat ory Pharmac y influenza, injectable, quadrivalent, contains preservative 6 2017 [id number] 158 Seqirus (SEQ) comple t ed influenza , injectabl e, quadrival ent, contains preservat sylvester DoD typhoid Vi capsular polysaccharid e vac 2017 [id number] 101 sanofi pasteur complet ed typhoid Vi capsular polysacch aride vac 09/05/17 Given Ambulat ory Pharmac y typhoid Vi capsular polysaccharid e vaccine 1 2017 [id number] 101 Sanofi Pasteur (PMC) complet ed typhoid Vi capsular polysacch aride vaccine DoD Influenza, inj, MDCK, quadrivalent- pf [id number] 171 Seqirus complet ed Influenza , inj, MDCK, quadrival ent-pf 02/14/17 Given Ambulat ory Pharmac y Influenza, injectable, Madin [place] Canine Kidney, preservative free, quadrivalent 1 [id number] 171 Seqirus (SEQ) comple t ed Influenza , injectabl e, Madin [place] Canine Kidney, preservat sylvester free, quadrival ent DoD influenza, seasonal, injectable-pf 2015 [id number] 140 Seqirus complet ed influenza , seasonal, injectabl e-pf 02/15/16 Given Ambulat ory Pharmac y Influenza, seasonal, injectable, preservative free 1 2015 [id number] 140 Seqirus (SEQ) comple t ed Influenza , seasonal, injectabl e, preservat sylvester free DoD typhoid Vi capsular polysaccharid e vac 2015 [id number] 101 sanofi pasteur complet ed typhoid Vi capsular polysacch aride vac 07/29/15 Given Ambulat ory Pharmac y typhoid Vi capsular polysaccharid e vaccine 1 2015 [id number] 101 Sanofi Pasteur (PMC) complet ed typhoid Vi capsular polysacch aride vaccine DoD influenza, seasonal, injectable 2014 [id number] 141 CSL Behring complet ed influenza , seasonal, injectabl e 02/02/15 Given Ambulat ory Pharmac y Influenza, seasonal, injectable 3 2014 [id number] 141 CSL Biotherapies, Inc. (CSL) complet ed Influenza , seasonal, injectabl e DoD influenza, seasonal, injectable 2013 [id number] 141 ID Biomedical comple t ed influenza , seasonal, injectabl e 02/03/14 Given Ambulat ory Pharmac y Influenza, seasonal, injectable 1 2013 [id number] 141 (IDB) complet ed Influenza , seasonal, injectabl e DoD hepatitis A adult vaccine 2013 [id number] 52 GlaxoSmithKli ne complet ed hepatitis A adult vaccine 01/06/14 Given Ambulat ory Pharmac y hepatitis B adult vaccine 2013 [id number] 43 Merck & Company Inc complet ed hepatitis B adult vaccine 01/06/14 Given Ambulat ory Pharmac y hepatitis B vaccine, adult dosage 3 2013 [id number] 43 Merck (MSD) complet ed hepatitis B vaccine, adult dosage DoD hepatitis A vaccine, adult dosage 3 2013 [id number] 52 [facility] (SKB) complet ed hepatitis A vaccine, adult dosage DoD hepatitis A-hepatitis B vaccine 2012 [id number] 104 GlaxoSmithKli ne complet ed hepatitis A-hepatit is B vaccine 03/20/13 Given Ambulat ory Pharmac y influenza, seasonal, injectable-pf 2012 [id number] 140 Novartis Pharmaceutica ls complet ed influenza , seasonal, injectabl e-pf 03/20/13 Given Ambulat ory Pharmac y varicella virus vaccine 2012 [id number] 21 Merck & Company Inc complet ed varicella virus vaccine 03/20/13 Given Ambulat ory Pharmac y varicella virus vaccine 1 2012 [id number] 21 Merck (MSD) complet ed varicella virus vaccine DoD hepatitis A and hepatitis B vaccine 1 2012 [id number] 104 SmithKline (SKB) complet ed hepatitis A and hepatitis B vaccine DoD Influenza, seasonal, injectable, preservative free 1 2012 1341 4P 140 Novartis Pharmaceutica l Zena. (NOV) complet ed Influenza , seasonal, injectabl e, preservat sylvester free DoD hepatitis A-hepatitis B vaccine 2012 [id number] 104 GlaxoSmithKli ne complet ed hepatitis A-hepatit is B vaccine 02/02/13 Given Ambulat ory Pharmac y varicella virus vaccine 2012 [id number] 21 Merck & Company Inc complet ed varicella virus vaccine 02/02/13 Given Ambulat ory Pharmac y varicella virus vaccine 1 2012 [id number] 21 Merck (MSD) complet ed varicella virus vaccine DoD hepatitis A and hepatitis B vaccine 1 2012 [id number] 104 SmithKline (SKB) complet ed hepatitis A and hepatitis B vaccine DoD adenovirus vaccine, live 2012 [id number] 5 143 Teva Pharmaceutica ls complet ed adenoviru s vaccine, live 01/26/13 Given Ambulat ory Pharmac y tetanus, diphtheria, acellular pertu is 2012 [id number] 115 GlaxoSmithKli ne complet ed tetanus, diphtheri a, acellular pertussis 01/26/13 Given Ambulat ory Pharmac y tuberculin purified protein derivative 2012 [id number] 96 [facility] complet ed tuberculi n purified protein derivativ e 01/26/13 Given Ambulat ory Pharmac y poliovirus vaccine, inactivated 2012 [id number] 10 sanofi pasteur complet ed polioviru s vaccine, inactivat ed 01/26/13 Given Ambulat ory Pharmac y meningococcal A,C,Y,W-135 (MCV4P) 2012 [id number] 114 sanofi pasteur complet ed meningoco ccal A,C,Y,W-1 35 (MCV4P) 01/26/13 Given Ambulat ory Pharmac y poliovirus vaccine, inactivated 1 2012 [id number] 10 Sanofi Pasteur ([facility]) complet ed polioviru s vaccine, inactivat ed DoD meningococcal polysaccharid e (groups A, C, Y and W-135) diphtheria toxoid conjugate vaccine (MCV4P) 1 2012 [id number] 114 Sanofi Pasteur ([facility]) complet ed meningoco ccal polysacch aride (groups A, C, Y and W-135) diphtheri a toxoid conjugate vaccine (MCV4P) DoD tetanus toxoid, reduced diphtheria toxoid, and acellular pertu is vaccine, adsorbed 1 2012 [id number] 115 [facility] (SKB) complet ed tetanus toxoid, reduced diphtheri a toxoid, and acellular pertussis vaccine, adsorbed DoD Adenovirus, type 4 and type 7, live, oral 1 2012 [id number] 143 [facility] ([facility]) complet ed Adenoviru s, type 4 and type 7, live, oral DoD measles virus vaccine 0 2012 05 () Not Given measles virus vaccine DoD rubella virus vaccine 0 2012 06 () Not Given rubella virus vaccine DoD mumps virus vaccine 0 2012 07 () Not Given mumps virus vaccine DoD Results Combined list of recent chemistry, hematology and other laboratory results from Department of Defense and Veterans Affairs, ranging from 15 months to all on record, depending upon the facility. Order Name Results Value Reference Range Date Interpretation Specimen Comments Source Infectio us Disease HIV-1/O/2 Non-Reac tive 1 (07/16/23 8:26 AM) 07/15 N Interpretiv e Data: INTERPRETAT ION: This method is a screening procedure for the detection of HIV p24 Antigen and Antibodies to HIV-1, including Group O, and/or HIV-2. NON-REACTIV E: HIV-1 antigen and HIV-1 / HIV-2 antibodies were not detected. No laboratory evidence of HIV infection. A negative test result does not exclude the possibility of exposure to or infection with HIV. HIV antibodies and/or p24 antigen may be undetectabl e in some stages of the infection and in some clinical conditions. If acute HIV infection is suspected, consider submitting another specimen to a reference laboratory for HIV-1 RNA. SCREEN REACTIVE - CONFIRMATIO N TO FOLLOW: Possible presence of HIV-1antibo dies, HIV-2 antibodies and/or HIV-1 p24 antigen. Specimen will reflex to the confirmatio n testing that fulfills the Center for Disease Control and Prevention' s HIV diagnostic algorithm. Refer to [facility] Lab Guide for additional information : [email or web address]. [email or web address]/ [email or web address] x Testing performed by [facility] [employer] [facility] Sendouts Repository Sample Received (07/16/23 8:26 AM) 07/15 N [facility] Vital Signs Combined list of inpatient and outpatient Vital Signs from Department of Defense and Veterans Affairs, ranging from 12 months to all on record, depending upon the facility. Vital Sign Value Date Comments Source No data available for this section Ambulatory Pharmacy Encounters Combined list of: 1) Encounters from Department of Veterans Affairs facilities going back up to thelast 18 months. 2) Encounters from the Department of Defense facilities going back up to 280 months. Location Location Details Encounter Type Encounter Number Reason For Visit Attending Provider ADM Date DC Date Status Disposition Source [facility] [place] [address](YUE Timothy) OUTPATIENT [id number] Notes Entered by: JOHNNIE MCGARRY 30 Jan 2013 1030 ------- ------- ------- ------- -- Blister Pack JOHNNIE MCGARRY. 01/30 Released w/o Limitations [facility] [place] [address](Jose Josevo) [place] [address](Opt ometry Clinic [facility]) OUTPATIENT [id number] ISABEL JOHNSTON 02/03 Released w/o Limitations [facility] [place] [address](O ptometr y Clinic [facility]) [place] [address](AFN G 104 Med Sq-FM) OUTPATIENT [id number] Notes Entered by: HANK VIZCAINO 02 Apr 2017 1324 ------- ------- ------- ------- -- Provide r F/u LISANDRO ROSARIOT 04/02 Released with Work/Duty Limitations [place] [address](A FNG 104 Med Sq-FM) [facility] [place] [address](AFN G 104 Med Sq-FM) OUTPATIENT [id number] Notes Entered by: AMY STEVENSON 31 May 2017 0953 ------- ------- ------- ------- -- AMY PORTILLO 05/31 [facility] [place] [address](A FNG 104 Med Sq-FM) [place] [address](AFN G 104 Med Sq-FM) OUTPATIENT [id number] Notes Entered by: ALESIA YUNG 25 Jun 2017 1607 ------- ------- ------- ------- -- VIC Summers 06/25 [facility]ased w/o Limitations [facility] [place] [address](A FNG 104 Med Sq-FM) [facility] [place] [address](AFN G 104 Med Sq-PH) OUTPATIENT [id number] Notes Entered by: ALESIA YUNG 26 Oct 2017 0945 ------- ------- ------- ------- -- Pre-Dep loyment / Occupat ional Health KELECHI WEBSTER 10/26 Released w/o Limitations [place] [address](A FNG 104 Med Sq-PH) [facility] [place] [address](AFN G 104 Med Sq-FM) OUTPATIENT [id number] Notes Entered by: ROSA WEBSTER 02 Jul 2018 1503 ------- ------- ------- ------- -- KELECHI SAMUEL 07/02 [facility] Limitations [facility] [place] [address](A FNG 104 Med Sq-FM) [facility] [place] [address](AFN G 104 Med Sq-FM) OUTPATIENT [id number] Notes Entered by: AMY STEVENSON 03 Jul 2018 0826 ------- ------- ------- ------- -- Audiogr am/AMY STEVENSON 07/03 Released w/o Limitations [place] [address](A FNG 104 Med Sq-FM) [place] [address](AFN G 104 Med Sq-FM) OUTPATIENT [id number] Notes Entered by: ALESIA YUNG 26 Jul 2018 0810 ------- ------- ------- ------- -- Annual Audiogr am AMY STEVENSON 07/26 [facility] Limitations [facility] [place] [address](A FNG 104 Med Sq-FM) [place] [address](AFN G 104 Med Sq-FM) OUTPATIENT [id number] Notes Entered by: AMY STEVENSON 09 Mar 2019 1056 ------- ------- ------- ------- -- R hand pain AMY STEVENSON 03/09 Rele[facility] with Work/Duty Limitations [facility] [place] [address](A FNG 104 Med Sq-FM) [facility] [place] [address](AFN G 104 Med Sq-FM) OUTPATIENT [id number] Notes Entered by: AMY STEVENSON 04 Jun 2019 1352 ------- ------- ------- ------- -- AMY PORTILLO 06/04 Released with Work/Duty Limitations [facility] [place] [address](A FNG 104 Med Sq-FM) [facility] [place] [address](AFN G 104 Med Sq-FM) OUTPATIENT [id number] Notes Entered by: AMY STEVENSON 08 Nov 2019 0909 ------- ------- ------- ------- -- RORO 1 AMY STEVENSON PATRICIA 11/07 [facility] Limitations [facility] [place] [address](A FNG 104 Med Sq-FM) [facility] [place] [address](AFN G 104 Med Sq-FM) OUTPATIENT [id number] Notes Entered by: ROSA WEBSTER 14 Feb 2020 1558 ------- ------- ------- ------- -- RORO2 KELECHI WEBSTER 02/13 [facility]itations [facility] [place] [address](A FNG 104 Med Sq-FM) [facility] [place] [address](AFN G 104 Med Sq-FM) OUTPATIENT [id number] Notes Entered by: AMY STEVENSON 12 Jun 2020 1233 ------- ------- ------- ------- -- AMY PORTILLO 06/12 [facility] Limitations [facility] [place] [address](A FNG 104 Med Sq-FM) [facility] [place] [address](AFN G 104 Med Sq-FM) OUTPATIENT [id number] Notes Entered by: ANGEL TAN 14 Jul 2020 1125 ------- ------- ------- ------- -- ROSIBEL Adams am 07/14 Released w/o Limitations [facility] [place] [address](A FNG 104 Med Sq-FM) [facility] [place] [address](AFN G 104 Med Sq-FM) OUTPATIENT [id number] Notes Entered by: AMY STEVENSON PATRICIA 11 Feb 2021 1137 ------- ------- ------- ------- -- [facility] phsjackia l AMY STEVENSON PATRICIA 02/11 [facility] Limitations [facility] [place] [address](A FNG 104 Med Sq-FM) [facility] [place] [address](AFN G 104 Med Sq-FM) OUTPATIENT [id number] Notes Entered by: ANGEL TAN 11 Jul 2021 1438 ------- ------- ------- ------- -- Audiogr am/PHAQ /TRAV BUSTOS 07/11 [facility]ased [facility] Limitations [facility] [place] [address](A FNG 104 Med Sq-FM) [facility] [place] [address](AFN G 104 Med Sq-FM) TELE CONSULT [id number] AMY STEVENSONRAFAEL 09/23 [facility] [place] [address](A FNG 104 Med Sq-FM) 8203R-104 MDG Care Not Rendered [id number] 07/15 Discharge Disposition: Home or Self Care 8203R-1 04 ADALGISA 8203R-104 MDG Outpatient [id number] PIOTR TUCKER 07/19 Discharge Disposition: Home or Self Care 8203R-1 04 ADALGISA Whitney Between Visit 12/28 Discharge Disposition: Home or Self Care Daina Whitney 8203R-104 ADALGISA Mass Vaccine [id number] 03/08 8203R-1 04 ADALGISA 8203R-104 MDG Between Visit [id number] 04/06 Discharge Disposition: Home or Self Care 8203R-1 04 MDG Procedures Combined list of: 1) Procedures from Department of Veterans Affairs facilities going back up to thelast 18 months, not all [place] non-surgical procedures are included; 2) All procedures from the Department of Defense facilities. Procedure Procedure Type Code Date Perfomer Comments Sour e No data available for this section [facility]acy PURE TONE AUDIOMETRY (THRESHOLD); AIR ONLY 2 DoD PURE TONE AUDIOMETRY (THRESHOLD); AIR ONLY 1 [facility] THERAPEUTIC, PROPHYLACTIC, OR DIAGNOSTIC INJECTION (SPECIFY SUBSTANCE OR DRUG); SUBCUTANEOUS OR INTRAMUSCULAR 3 [facility] SCREENING TEST OF VISUAL ACUITY, QUANTITATIVE, BILATERAL 3 [facility] Screening Test Of Visual Acuity, Quantitative, Bilateral Screening Test Of Visual Acuity, Quantitative, Bilateral 62578 3 JUSTYNA NEAL [facility] Spectacles Services Fitting Monofocal Except For Aphakia Spectacles Services Fitting Monofocal Except For Aphakia 32163 3 JUSTYNA NEAL [facility] Threshold Audiogram (Pure Tone) Threshold Audiogram (Pure Tone) 57846 ROSIBEL CHOPRA [facility] Social History Combined list of available smoking, tobacco, and other social history from Department of Defense and Veterans Affairs facilities. Social History Type Response Date Comment Sour e This section is an empty social history section. DoD Assessment and Plan Combined list of future care activities from Department of Defense and Veterans Affairs facilities (e.g., assessment and plan notes, appointments, orders, and referrals). Additional future care activities may be listed in the Plan of Care section. Result Assessment and Plan Date Source Assessment and Plan No data available for this section 05/12/2024 Ambulatory Pharmacy Functional Status Combined list of recent functional and cognitive assessments recorded at Department of Defense and [place] Affairs [place] Functional [place] Measurement (FIM) Scale: 1 = Total Assistance (Subject = 0% +), 2 = Maximal Assistance (Subject = 25% +), 3 = Moderate Assistance (Subject = 50% +), 4 = Minimal Assistance (Subject = 75% +), 5 = Supervision, 6 = Modified [place] (Device), 7 = Complete [place] (Timely, Safely). Assessment Date/Time Source Assessment Type Assessment Skill Assessment Score Assessment Details No data available for this section
[2024-05-12 09:43] VITALS: BP 134/98; PULSE 74; O2SAT 98; BMI 31.9
--- NOTE | 2024-05-12 09:43 | A.OFFVIS_ITS ---
Vital Signs 05/12/24 09:43 Height 5 ft 10 in Weight 222 lb 8 oz BMI 31.9 BP 134/98 H Blood Pressure Location Rt brachial Position Sitting Pulse 74 Pulse Source Pulse Oximeter Pulse Oximetry (%) 98 Oxygen Delivery Method Room Air Intake Visit Reasons: Follow up Allergies Seasonal Allergies Allergy (Mild, Verified 05/12/24 09:46) Itchy Eyes Medication List - Last Reconciled 05/12/24 by Linda Mac PA-C albuterol sulfate 90 mcg/actuation 2 puffs inhalation Q6H PRN blood pressure test kit-large As directed cetirizine (Zyrtec) 10 mg PO DAILY PRN fluticasone propionate 50 mcg/actuation (Allergy Relief (fluticasone)) 2 sprays intranasal DAILY 1 month gabapentin 1-3 caps orally bedtime; modafinil 100 mg PO DAILY 30 days multivitamin 1 tab PO DAILY HPI Comments Details: 29 y/o male patient presents for follow up of PSG sleep study due to Hypersomnia. PSG study 01/2022: PLM index of 37/hour with no signifcant arousals or apnea No evidence of sleep apnea Mild to moderate snoring He has mild Apnea with periodic leg movement. 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 Goes to bed : varying schedule. 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 2am - takes the Gabapentin Day shift schedule is 6:30am to 4:30pm - 4 month consecutively. Diet is good, eats clean, works out 3-5 time a week. Mood is okay, his blood pressure is elevated today, he says it must be White coat syndrome 134/98. PLMS: RLS: PLMD: anxious? Pt reports that he sleeps better with gabapentin 300mg, he doesn't notice if he is moving his legs, but has leg cramps now and then. Denies numbness, tingling, or discomfort, and it doesn't keep him up at night. He also uses mouth guard, his noticed that his snoring has been decreased. Daytime sleepiness has improved. He uses modafinil 100 mg q 8 am. MSLT test not done yet, /r/o Narcolepsy. Labs: B12/ CMP/Ferritin/TSH/Vit D ESS 17 PFSH Medical History No pertinent past medical history Surgical History History of hand surgery Family History Mother No problems noted. Father No problems noted. Social History Household Members: Spouse Household Members Other:: Housing: House Alcohol intake: current Patient Tobacco Use Status: Current everyday Tobacco user Tobacco use type: Smokeless Tobacco e-Cigarette/Vaping Use: Never Used Second Hand Smoke Exposure: No service: Yes Current occupational status: employed Current occupation: Patient works at the [employer] in [place] Current occupational exposures/hazards: Yes Cognitive needs: No Hearing needs: No (Patient reports ringing in ears due to job ) Vision needs: No (Wears glasses) Physical Exam Vital Signs: Last Vital Signs Pulse 74 05/12/24 09:43 BP 134/98 H 05/12/24 09:43 Pulse Ox 98 05/12/24 09:43 Oxygen Delivery Method Room Air 05/12/24 09:43 BMI result Body Mass Index 31.9 Const General: cooperative, comfortable and no acute distress Nutritional Appearance: average body habitus and obese (BMI is 31) Orientation/consciousness: patient oriented x3 HEENT Face and sinus: Yes normal facial exam and Yes face symmetric Throat: Yes other ([place] score of 4 wide tongue) Eyes Pupils: Equal, round and reactive pupils present Neck Neck: Yes full ROM Resp Effort & Inspection: normal respiratory effort and able to speak in complete sentences Neuro General: patient oriented x3 and moves all extremities Cranial nerves: Yes CN's II-XII intact bilaterally, Yes Facial sensation intact/muscles of mastication intact, Yes Equal, round and reactive pupils present, Yes Normal accommodation reflex present, Yes Bilaterally intact EOM present, Yes Nystagmus not present, Yes Normal facial strength present, Yes Midline tongue present, Yes Ability to bilaterally rotate head present and Yes Ability to bilaterally elevate shoulders present Cognition (Neuro): normal cognition Gait exam (Neuro): Normal gait present Motor exam (neuro): 5/5 motor strength present throughout and Normal motor muscle tone present throughout Deep tendon reflexes (DTR's): Right triceps reflex intensity grade: 2+, Left triceps reflex intensity grade: 2+, Rt Biceps (C5, C6): 2+, Left biceps reflex intensity grade: 2+, Right brachioradialis reflex intensity grade: 2+, Left brachioradialis reflex intensity grade: 2+, Right patellar reflex intensity grade: 2+, Left patellar reflex intensity grade: 2+, Right ankle reflex intensity grade: 2+ and Left ankle reflex intensity grade: 2+ Coordination: [id number] test normal Results Reviewed Results Reviewed: PSG study 01/2022 PLM index of 37/hour with no signifcant arousals or apnea No evidence of sleep apnea Mild to moderate snoring Monitor BP Labs reviewed Assessment & Plan Assessment & Plan (1) Excessive daytime sleepiness: Comment: ESS score 18 PSG sleep study revealed no evidence of sleep apnea. Code(s): G47.19 - Other hypersomnia Category: Medical (2) Periodic limb movement disorder: Code(s): G47.61 - Periodic limb movement disorder Category: Medical (3) Excessive daytime sleepiness: Comment: ESS score 18 PSG sleep study revealed no evidence of sleep apnea. Code(s): G47.19 - Other hypersomnia Category: Medical (4) Periodic limb movement disorder: Code(s): G47.61 - Periodic limb movement disorder Category: Medical (5) Excessive daytime sleepiness: Comment: ESS score 18 PSG sleep study revealed no evidence of sleep apnea. Code(s): G47.19 - Other hypersomnia Category: Medical (6) Periodic limb movement disorder: Code(s): G47.61 - Periodic limb movement disorder Category: Medical (7) Hypersomnia: Code(s): G47.10 - Hypersomnia, unspecified Category: Medical Plan Periodic Limb Movement Disorder Restless leg Syndrome? Continue taking 300 mg of Gabapentin daily when going to bed. Continue taking 100mg of Modafinil daily at 8am daily. 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 Will follow up with [facility] Narcolepsy? R/O Labs: Check Ferritin, CMP, B12, TSH, Vit D to r/o reversible cause of hypersomnia ESS score is 18- pathologic for Narcolepsy HTN Monitor Blood pressure 134/98 today. F/u in 3 months Orders: Orders RT sleep testing - MSLT Today G47.19 - Other hypersomnia, G47.61 - Periodic limb movement disorder Methylmalonic Acid Today G47.19 - Other hypersomnia, G47.61 - Periodic limb movement disorder Ferritin Today G47.19 - Other hypersomnia, G47.61 - Periodic limb movement disorder Vitamin B12 and Folate Today G47.19 - Other hypersomnia Vitamin D 25-OH Total Today G47.19 - Other hypersomnia, G47.61 - Periodic limb movement disorder TSH reflex Free T4 Today F09 - Unspecified mental disorder due to known physiological condition Comprehensive Met. Panel Today G47.19 - Other hypersomnia, G47.61 - Periodic limb movement disorder Complete Blood Count no Diff Today G47.19 - Other hypersomnia, G47.61 - Periodic limb movement disorder Homocysteine Today G47.19 - Other hypersomnia, G47.61 - Periodic limb movement disorder Coding Level of Care Code Est Pt Level 4 (31363) Diagnoses Excessive daytime sleepiness G47.19 Periodic limb movement disorder G47.61 Hypersomnia G47.10 Time Spent (min) 30 Comment Evaluation Narcolepsy [place] Sleepiness Scale Questions Sitting and reading: high chance of dozing Watching TV: high chance of dozing Sitting inactive in a theater, movie etc.: high chance of dozing As a passenger in a car for an hour without break: high chance of dozing Lying down in the afternoon when circumstances permit: moderate chance of dozing Sitting and talking to someone: high chance of dozing Sitting quietly after lunch without alcohol: would never doze In a car, while stopped for a few minutes in the traffic: would never doze ESS < 10: normal, ESS > 12: pathologic: 17 Sleep Questionnaire Difficulty staying asleep?: Yes (3wakes up a few times a night / reads or bathroom ) Number of arousals: 3-5 x Snoring: Yes Witnessed apneas: Yes Gasping arousals: Yes Nocturia: No GERD: Yes Vivid dreams: Yes Acting out dreams: Yes Abnormal behavior in sleep: Yes Abnormal movements in sleep: Yes (Moving legs and falls asleep) Morning headaches: No Excessive daytime sleepiness: Yes Daytime naps: Yes Restless legs: Yes Hallucinations: No Sleep paralysis: Yes Drop attacks: No Sleep Study: Yes CPAP: No
== END 2024-05-12 10:23 | disposition home or self-care (01) ==
PROVIDERS: PCP Nurse Practitioner Family; Visit Provider Physician Assistant Medical
DX: G47.19 Other hypersomnia (principal); G47.61 Periodic limb movement disorder; G47.10 Hypersomnia, unspecified
CPT/HCPCS: 99214

== ENCOUNTER → 2024-05-12 09:38 | Outpatient (BNVA) | payer OTHER, SELFPAY | PROVIDERS: PCP Nurse Practitioner Family; Visit Provider Nurse Practitioner Family | DX: G47.19 Other hypersomnia (principal); G47.61 Periodic limb movement disorder | CPT/HCPCS: 99212 ==